=== PATIENT | female | born 1960 | race Caucasian/White ===

== ENCOUNTER 2016-09-30 09:27 | Emergency (ER) | payer MEDICARE, OTHER ==
[~2016-09-30] VITALS: Ht 160 cm; Wt 61.8 kg
[~2016-09-30 09:27] MED LIST: AFRI0.059 EACH NARE; ASPI1TAB69 PO
[2016-09-30 09:33] VITALS: BP 132/83; PULSE 70; RESP 16; TEMP 98.3; O2SAT 98
[2016-09-30] MEDS: KETOROLAC TROMETHAMINE 60 MG/2 ML (IM) VIAL IM ONE ×2 (09:45→10:09)
[2016-09-30] MEDS ORDERED: ORPHENADRINE INJ 60 MG/2 ML AMP IM ONE (09:45)
--- NOTE | 2016-09-30 09:50 | PD ---
HPI Chief Complaint: Musculoskeletal Complaint Time Seen by Provider: 09:37 Travel History International Travel<30 days: No Contact w/Intl Traveler<30days: No Traveled to known affect area: No History of Present Illness HPI This is a 56-year-old female who presents to the emergency department with left- sided shoulder pain that started last evening, constant, severe making it difficult for her to move her shoulder. She says that in the past she's popped out her shoulder and has been able to put it in on her own. She doesn't take any pain medications. She denies any injuries. She doesn't work and is disabled due to chronic back problems. PFSH Past Medical History Cardiovascular Problems: Yes (hx of htn not on meds) High Cholesterol: Yes Diabetes: No Diminished Hearing: No Respiratory: Yes (copd, asthma) Myocardial Infarction: Yes Seizures: Yes ?: Not : 1 Para: 1 Past Surgical History Section: Yes Hysterectomy: Yes Other Surgery: Yes (LOWER BACK FUSION) Social History Alcohol Use: Yes Tobacco Use: Yes Substance Use: No (PT DENIES) Allergies-Medications (Allergen,Severity, Reaction): Coded Allergies: Cipro (Verified Allergy, Severe, THROAT SWELLING, 09/30/16) Demerol (Verified Allergy, Severe, THROAT SWELLING, 09/30/16) Morphine (Verified Allergy, Severe, THROAT SWELLING, 09/30/16) Reported Meds & Prescriptions Reported Meds & Active Scripts Active No Active Prescriptions or Reported Medications Review of Systems Except as stated in HPI: all other systems reviewed are Neg Physical Exam Narrative GENERAL: Well-appearing, no acute distress, nontoxic SKIN: Warm and dry. HEAD: Atraumatic. Normocephalic. ENT: No nasal bleeding or discharge. Moist mucous membranes MUSCULOSKELETAL: Tender to palpation along the left bicep and left upper trapezius muscle with severe pain with abduction and external rotation of the left shoulder. NEUROLOGICAL: Awake and alert. No obvious cranial nerve deficits. Motor grossly within normal limits. Sensation and motor are grossly intact in the left forearm. Vascular: 2+ left radial pulse with normal capillary refill. PSYCHIATRIC: Appropriate mood and affect; insight and judgment normal. Data Data Last Documented VS Vital Signs Date Time Temp Pulse Resp B/P Pulse Ox O2 Delivery O2 Flow Rate FiO2 09/30/16 09:33 98.3 70 16 132/83 98 Orders Shoulder, Complete (>2vws) (09/30/16 ) Ketorolac Inj (Toradol Inj) (09/30/16 09:45) Orphenadrine Inj (Norflex Inj) (09/30/16 09:45) MDM Medical Decision Making Medical Screen Exam Complete: Yes Emergency Medical Condition: Yes Interpretation(s) Afebrile, no tachycardia, normotensive X-ray: No acute dislocation or fracture Differential Diagnosis Rotator cuff sprain, rotator cuff tear, shoulder dislocation Narrative Course This is a 56-year-old female who presents to the emergency department with left shoulder pain that started last evening. She has a normal neurovascular exam and no history of injury. She is afebrile and I don't suspect a septic arthritis. Patient was given an IM muscle relaxer. She refused Toradol. She has stated allergies to Demerol and morphine. She'll be discharged home with anti-inflammatories, muscle relaxer and can follow-up with orthopedics as an outpatient. Diagnosis Primary Impression: Sprain of left shoulder Qualified Code: S43.402A - Sprain of left shoulder, unspecified shoulder sprain type, initial encounter Patient Instructions: General Instructions Additional Instructions: If you develop numbness, weakness or severe pain return to the emergency room. Follow-up with your primary care physician if you're not improved in 2-3 days. Apply ice, rest and elevate your arm. Med/Other Pt SpecificInfo: Prescription(s) given Scripts Cyclobenzaprine (Flexeril)10 Mg Tab10 Mg PO TID #10 TAB Ref 0 Prov:Yamel Tam MD 09/30/16 Naproxen 500 Mg [id number] Mg PO BID PRN (PAIN SCALE 4 TO 10) #20 TAB Prov:Yamel Tam MD 09/30/16 Disposition: 01 DISCHARGE HOME Condition: Stable Yamel Tam MD Sep 30, 2016 09:50
--- NOTE | 2016-09-30 10:47 | RADHPO ---
EXAM DATE/TIME: 09/30/2016 10:28 [facility] COMPARISON: No previous studies available for comparison. INDICATIONS : Left shoulder pain, no known imjury. MEDICAL HISTORY : torn rotator cuff left shoulder, left shoulder dislocation SURGICAL HISTORY : None. ENCOUNTER: Initial ACUITY: 2 days PAIN SCORE: 10/10 LOCATION: Left shoulder FINDINGS: Multiple view examination of the left shoulder demonstrates no evidence of fracture or dislocation. The glenohumeral and acromioclavicular joints are maintained. There is normal range of motion betwee n internal and external rotation. Bony mineralization is normal. CONCLUSION: Negative for acute process.. Matt Allen MD FACR on September 30, 2016 at 10:45 Board Certified Radiologist. This report was verified electronically.
[2016-09-30] MEDS ORDERED: CYCL1TAB29 PO (10:55)
[2016-09-30] MEDS ORDERED: NAPR500T PO (10:55)
== END 2016-09-30 11:16 | disposition home or self-care (01) ==
LOC: PHED 09:27
DX: S43.402A Unspecified sprain of left shoulder joint, initial encounter (principal); X58.XXXA Exposure to other specified factors, initial encounter
CPT/HCPCS: 73030; 96372; 99283; J1885; J2360

== ENCOUNTER 2016-10-14 13:03 | Emergency (ER) | payer MEDICARE, OTHER ==
[~2016-10-14] VITALS: Ht 160 cm; Wt 60.6 kg
[~2016-10-14 13:03] MED LIST changes: -AFRI0.059 EACH NARE; -ASPI1TAB69 PO; +CYCL1TAB29 PO; +NAPR500T PO
[2016-10-14 13:39] VITALS: BP 151/97; PULSE 67; RESP 16; TEMP 97.9; O2SAT 97
--- NOTE | 2016-10-15 14:54 | EKG ---
Date Performed: 10/14/2016 Time Performed: 13:27:48 PTAGE: 56 years EKG: Sinus rhythm Short IA interval Lateral ST changes are nonspecific Compared to prior tracing no significant change Borderline ECG PREVIOUS TRACING : 12/23/2014 22.56 DOCTOR: James Mari Interpretating Date/Time 10/15/2016 14:50:25
== END 2016-10-14 13:52 | disposition left against medical advice (07) ==
LOC: PHED 13:03
DX: R07.9 Chest pain, unspecified (principal)
CPT/HCPCS: 93005; 99281

== ENCOUNTER 2018-01-07 09:04 | Emergency (ER) | payer OTHER, MEDICARE ==
[~2018-01-07] VITALS: Ht 160 cm; Wt 52.5 kg
[~2018-01-07 09:04] MED LIST changes: +CYCL10TA PO; -CYCL1TAB29 PO; -NAPR500T PO; +NAPR500T2 PO
[2018-01-07 09:07] VITALS: BP 163/83; PULSE 87; RESP 18; TEMP 97.3; O2SAT 98
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
[2018-01-07] MEDS ORDERED: IBUP1TAB5 PO (09:42)
[2018-01-07] MEDS ORDERED: LISI10TA3 PO (09:42)
[2018-01-07] MEDS ORDERED: ORPHENADRINE INJ 60 MG/2 ML AMP IM ONE (10:00)
[2018-01-07] MEDS ORDERED: KETOROLAC TROMETHAMINE 60 MG/2 ML (IM) VIAL IM ONE (10:00)
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
== END 2018-01-07 11:33 | disposition home or self-care (01) ==
LOC: NEPD 09:04
DX: R07.89 Other chest pain (principal); F17.210 Nicotine dependence, cigarettes, uncomplicated
CPT/HCPCS: 71101; 96372; 99283; J1885; J2360

== ENCOUNTER 2018-01-26 07:31 | Emergency (ER) | payer OTHER, MEDICARE ==
[~2018-01-26] VITALS: Ht 160 cm; Wt 54.0 kg
[~2018-01-26 07:31] MED LIST changes: +IBUP1TAB5 PO; +LISI10TA3 PO; -NAPR500T2 PO
[2018-01-26 07:35] VITALS: BP 104/76; PULSE 80; RESP 18; TEMP 98.2; O2SAT 99
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
[2018-01-26] MEDS ORDERED: HYDR-3516 PO (07:52)
[2018-01-26] MEDS ORDERED: MORP1TAB25 PO (07:52)
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
[2018-01-26] MEDS ORDERED: BUTA1CAP PO (09:24)
[2018-01-26 09:31] VITALS: BP 124/78
== END 2018-01-26 09:32 | disposition home or self-care (01) ==
LOC: PHED 07:31
DX: R51 Headache (principal); R11.2 Nausea with vomiting, unspecified; R42 Dizziness and giddiness; I25.2 Old myocardial infarction; E11.9 Type 2 diabetes mellitus without complications; I10 Essential (primary) hypertension; J45.909 Unspecified asthma, uncomplicated; F17.210 Nicotine dependence, cigarettes, uncomplicated; F12.90 Cannabis use, unspecified, uncomplicated; Z90.710 Acquired absence of both cervix and uterus; Z88.1 Allergy status to other antibiotic agents; Z88.5 Allergy status to narcotic agent
CPT/HCPCS: 70450; 99283